=== PATIENT | male | born 1990 | race Two or more races ===

== ENCOUNTER 2018-12-19 13:46 | Emergency (ER) | payer SELFPAY ==
[~2018-12-19] VITALS: Ht 167.6 cm; Wt 59.9 kg
[2018-12-19 13:57] VITALS: BP 137/76
--- NOTE | 2018-12-19 14:10 | NUR ---
BIB [facility] PT C/O SUBSTERNAL CP "ITS LIKE SOMEONE SHOVING MY CHEST INSIDE" NON RADIATING.PT USED [facility] LAST NIGHT. BG 107. PARANOID PER EMS. PT AAOX4, VSS. DENIES SOB, DIZZINESS, N/V, ARM/JAW PAIN @ THIS TIME. AWAITING EVAL BY MD/PA. PLACED ON FABRICATION LEAD. WILL CONT TO MONITOR.
--- NOTE | 2018-12-19 15:30 | NUR ---
PT WANTS TO LEAVE AMA BUT REFUSED TO SIGN AMA FORM & ACI FORM. PT PULLED OUT HIS SALINE LOCK ON LT AC, REFUSED ANYONE ONE TOUCHING HIM. PT APPLIED BANDAID, INTACT & NO ACTIVE BLEEDING NOTED, MARGARITO AMAYA AWARE.
== END 2018-12-19 15:47 | disposition left against medical advice (07) ==
LOC: ER 13:48
DX: R07.89 Other chest pain (principal); F15.10 Other stimulant abuse, uncomplicated; J45.909 Unspecified asthma, uncomplicated; F41.9 Anxiety disorder, unspecified; F17.200 Nicotine dependence, unspecified, uncomplicated; Z86.19 Personal history of other infectious and parasitic diseases; Z60.2 Problems related to living alone
CPT/HCPCS: 99283; A4606